=== PATIENT | male | born 1965 | race Caucasian/White ===

== ENCOUNTER 2017-10-19 07:57 | Day surgery (SDC) | payer OTHER ==
[2017-10-19] MEDS ORDERED: DEXAMETHASONE 10 MG/ML VIAL PF IJ ONE (07:58)
[2017-10-19] MEDS ORDERED: Lactated Ringers 1,000 ML IV ONE (07:58)
[2017-10-19] MEDS ORDERED: Xylocaine 1% Vial 30 ML PF IJ ONE (07:58)
[2017-10-19] MEDS ORDERED: DIPRIVAN 200 MG/20 ML IV ONE (07:58)
--- NOTE | 2017-10-19 11:37 | XRAY ---
Indication: Right L5 GILBERTO. Intraoperative fluoroscopy was provided for 1 minute 12 seconds. 3 digital spot images submitted for interpretation demonstrates posterior spinal needle tip projecting over the expected course of the right L5 nerve root. Tiny contrast injected for needle tip placement. Correlate with intraoperative findings/report.
--- NOTE | 2017-10-19 11:41 | XRAY ---
1 minute and 12 seconds fluoroscopy time in surgery for right side L5 GILBERTO.
--- NOTE | 2017-10-19 14:38 | OP ---
DATE OF PROCEDURE: 10/19/2017 0927 SURGEON: Michael Phoenix D.O. PREOPERATIVE DIAGNOSES: Degenerative lumbar spine disease, lumbar spondylosis. POSTOPERATIVE DIAGNOSES: Degenerative lumbar spine disease, lumbar spondylosis. PROCEDURE PERFORMED: Right L5 epidural steroid injection under fluoroscopic guidance. DESCRIPTION OF PROCEDURE: The patient was taken to the operating room and laid in the prone position on the table. Skin over the injection site was prepped and draped in sterile fashion. Under fluoroscope bony anatomy at the targeted injection site was visualized. Induction agent was given as per anesthesia while vital signs were monitored. Local anesthetic agent was introduced to anesthetize the skin in the subcutaneous tissue through injection site. Under fluoroscopic guidance a #22-gauge standard spinal needle was advanced into the target epidural space. 1 cc of preservative free Decadron was injected into each of the target epidural space. While the needle was being removed normal saline was simultaneously infiltrated to avoid sterile needle tract. Skin was cleansed with alcohol and then a bandage was applied. There was 30% pain reduction after the procedure. No complications or adverse consequences were observed. The patient was returned to the holding area until stabilized before discharge to home. The patient will be followed up within ten days after the injection for re-evaluation.
== END 2017-10-19 10:45 | disposition home or self-care (01) ==
LOC: SDC-PAIN 07:57
PROVIDERS: ATTEND Internal Medicine
DX: M54.5 Low back pain (principal); M51.16 Intervertebral disc disorders with radiculopathy, lumbar region; M46.96 Unspecified inflammatory spondylopathy, lumbar region; Z79.891 Long term (current) use of opiate analgesic
CPT/HCPCS: 62323; 72020; 77003; J2001; J2704; Q9967

== ENCOUNTER 2017-11-23 10:39 | Day surgery (SDC) | payer OTHER ==
[2017-11-23] MEDS ORDERED: DIPRIVAN 200 MG/20 ML IV ONE (10:40)
[2017-11-23] MEDS ORDERED: Xylocaine-Mpf 2% 5 Ml Vial IJ ONE (10:40)
[2017-11-23] MEDS ORDERED: Marcaine 0.5% SDV 10 ML IJ ONE (10:40)
[2017-11-23] MEDS ORDERED: Ketamine HCl 50 MG/ML IV ONE (10:40)
[2017-11-23] MEDS ORDERED: Lactated Ringers 1,000 ML IV ONE (10:40)
--- NOTE | 2017-11-23 12:03 | XRAY ---
Indication: Right L5 and S1 MBB. Intraoperative fluoroscopy was provided for 19 seconds. 2 digital spot images submitted for interpretation demonstrates posterior spinal needle tips projecting over the right L4 and L5 pedicles. Correlate with intraoperative findings/report.
--- NOTE | 2017-11-23 12:05 | XRAY ---
19 seconds fluoroscopy time in surgery for right L5-S1 MBB.
--- NOTE | 2017-11-24 10:15 | OP ---
DATE OF PROCEDURE: 11/23/2017 1130 SURGEON: Michael Phoeinx D.O. PREOPERATIVE DIAGNOSIS: Degenerative lumbar spine disease, spondylosis, low back pain. POSTOPERATIVE DIAGNOSIS: Degenerative lumbar spine disease, spondylosis, low back pain. PROCEDURE PERFORMED: Right L5-L4 medial branch block under fluoroscopic guidance. DESCRIPTION OF THE PROCEDURE: The patient was taken to the operating room and placed in the prone position on the table. Skin at the injection site was prepped and draped in sterile fashion. Under fluoroscopy, bony anatomy of the targeted injection site was visualized. Induction agent was given as per anesthesia while vital signs were monitored. Local anesthetic agent of 0.5 cc of 1% lidocaine preservative free was introduced to anesthetize the skin and the subcutaneous tissue through the injection site. Under fluoroscopic guidance, a #20 gauge standard spinal needle was advanced into the target medial branch through the oblique approach. The preservative free 0.5 cc of 1% lidocaine and 0.5 cc of 0.25% Marcaine were injected into each of the targeted medial branch nerve. After the needle was being removed, the skin was cleansed with alcohol and then a bandage was applied. No complications or adverse consequences were observed. The patient was returned to the holding area until stabilized before discharge to home. After the procedure the residual pain is 5 out of 10. There was no muscle weakness of the lower extremities after the procedure. The patient was ambulating well. The patient will be followed up within ten days after the injection for re-evaluation.
== END 2017-11-23 12:00 | disposition home or self-care (01) ==
LOC: SDC-PAIN 10:39
PROVIDERS: ATTEND Internal Medicine
DX: M54.16 Radiculopathy, lumbar region (principal); M46.96 Unspecified inflammatory spondylopathy, lumbar region; M51.36 Other intervertebral disc degeneration, lumbar region; Z79.891 Long term (current) use of opiate analgesic
CPT/HCPCS: 64493; 64494; 72020; 76000; J2704

== ENCOUNTER 2017-12-14 09:48 | Day surgery (SDC) | payer OTHER ==
[2017-12-14] MEDS ORDERED: Marcaine 0.5% SDV 10 ML IJ ONE (09:49)
[2017-12-14] MEDS ORDERED: LIDOCAINE HCL 2% 100 MG/5 ML IJ ONE (09:49)
[2017-12-14] MEDS ORDERED: Xylocaine-Mpf 2 ML IJ ONE (09:49)
[2017-12-14] MEDS ORDERED: DIPRIVAN 200 MG/20 ML IV ONE (09:49)
--- NOTE | 2017-12-14 12:25 | XRAY ---
Indication: L4-L5 and L5-S1 MBB. Intraoperative fluoroscopy was provided for 15 seconds. 4 digital spot images submitted for interpretation demonstrates 1 posterior spinal needle tip projecting over the right L5 pedicle and a 2nd needle tip projecting just right lateral to the lumbosacral junction. Correlate with intraoperative findings/report.
--- NOTE | 2017-12-14 12:53 | XRAY ---
15 seconds fluoroscopy time in surgery for L4-5 and L-5,S-1 MBB.
--- NOTE | 2017-12-15 09:36 | OP ---
DATE OF PROCEDURE: 12/14/2017 1132 SURGEON: Michael Phoenix D.O. PREOPERATIVE DIAGNOSIS: Degenerative lumbar spine disease, spondylosis, low back pain. POSTOPERATIVE DIAGNOSIS: Degenerative lumbar spine disease, spondylosis, low back pain. PROCEDURE PERFORMED: Right L5-L4 medial branch block under fluoroscopic guidance. DESCRIPTION OF THE PROCEDURE: The patient was taken to the operating room and placed in the prone position on the table. Skin at the injection site was prepped and draped in sterile fashion. Under fluoroscopy, bony anatomy of the targeted injection site was visualized. Induction agent was given as per anesthesia while vital signs were monitored. Local anesthetic agent of 0.5 cc of 1% lidocaine preservative free was introduced to anesthetize the skin and the subcutaneous tissue through the injection site. Under fluoroscopic guidance, a #20 gauge standard spinal needle was advanced into the target medial branch through the oblique approach. The preservative free 0.5 cc of 1% lidocaine and 0.5 cc of 0.25% Marcaine were injected into each of the targeted medial branch nerve. After the needle was being removed, the skin was cleansed with alcohol and then a bandage was applied. No complications or adverse consequences were observed. The patient was returned to the holding area until stabilized before discharge to home. Preoperative pain level was 8 out of 10 and the postoperative pain level is 5 out of 10. The patient will be followed up within ten days after the injection for re-evaluation.
== END 2017-12-14 12:05 | disposition home or self-care (01) ==
LOC: SDC-PAIN 09:48
PROVIDERS: ATTEND Internal Medicine
DX: M54.16 Radiculopathy, lumbar region (principal); M46.96 Unspecified inflammatory spondylopathy, lumbar region; M51.36 Other intervertebral disc degeneration, lumbar region; Z79.891 Long term (current) use of opiate analgesic; M47.816 Spondylosis without myelopathy or radiculopathy, lumbar region
CPT/HCPCS: 64493; 64494; 72020; 77003; J2704

== ENCOUNTER 2017-12-28 07:42 | Day surgery (SDC) | payer OTHER ==
[2017-12-28] MEDS ORDERED: Marcaine 0.5% SDV 10 ML IJ ONE (07:43)
[2017-12-28] MEDS ORDERED: DIPRIVAN 200 MG/20 ML IV ONE (07:43)
[2017-12-28] MEDS ORDERED: XYLOCAINE-MPF 1% 5ML SDV IJ ONE (07:43)
[2017-12-28] MEDS ORDERED: Lactated Ringers 1,000 ML IV ONE (09:13)
--- NOTE | 2017-12-28 11:00 | XRAY ---
Indication: Right L4-L5 and L5-S1 RFA. Intraoperative fluoroscopy was provided for 32 seconds. 3 digital spot images submitted for interpretation demonstrates 3 posterior spinal needle tips projecting over the right L3-L4, L4-L5, and L5-S1 facets. Correlate with intraoperative findings/report.
--- NOTE | 2017-12-28 12:28 | XRAY ---
32 seconds fluoroscopy time in surgery for right L4-L5, L5-S1 RFA.
--- NOTE | 2017-12-29 07:58 | OP ---
DATE OF PROCEDURE: 12/28/2017 0943 SURGEON: Michael Phoenix D.O. PREOPERATIVE DIAGNOSIS: Degenerative lumbosacral spine disease, spondylosis, low back pain. POSTOPERATIVE DIAGNOSIS: Degenerative lumbosacral spine disease, spondylosis, low back pain. PROCEDURES PERFORMED: Right L5, L4, L3 medial branch radiofrequency ablation under fluoroscopic guidance. DESCRIPTION OF PROCEDURE: The patient was taken to the operating room and laid in the prone position on the table. The skin over the injection site was prepped and draped in sterile fashion. Under fluoroscopy bony anatomy of the target injection site was visualized. Induction agent was given as per anesthesia while vital signs were monitored. Local anesthetic agent was introduced to anesthetize the skin and the subcutaneous tissue through the injection site. Under fluoroscopic guidance a standard size spinal needle with cannula was advanced into the target medial branch nerve as per standard protocol. Before the radiofrequency ablation motor and sensory nerve testing was conducted as per protocol. Under the safety guidance which ensured no motor nerves being involved, L5, L4, L3 radiofrequency ablation was conducted at 80 degrees Celsius for 90 seconds as per standard protocol. After the spinal needle with the cannula was removed the skin was cleansed with alcohol and then a bandage was applied. No complications or adverse occurrences were observed. The patient was returned to the holding area until stabilized before being discharged to home. The preoperative pain level was 8 out of 10 and postoperative pain level is 6 out of 10. The patient will be followed up within 10 days after the procedure for re-evaluation.
== END 2017-12-28 10:26 | disposition home or self-care (01) ==
LOC: SDC-PAIN 07:42
PROVIDERS: ATTEND Internal Medicine
DX: M54.16 Radiculopathy, lumbar region (principal); M46.96 Unspecified inflammatory spondylopathy, lumbar region; M47.816 Spondylosis without myelopathy or radiculopathy, lumbar region; Z79.891 Long term (current) use of opiate analgesic
CPT/HCPCS: 64635; 64636; 72020; 77003; J2704

== ENCOUNTER 2018-02-26 08:52 | Observation (INO) | payer OTHER ==
[2018-02-26] MEDS ORDERED: Sodium Chloride 0.9% 1000 ML 1,000 ML IV SCH (09:30)
[2018-02-26] MEDS ORDERED: Adacel Vial IM ONE ×2 (09:31→09:34)
[2018-02-26] MEDS ORDERED: Zosyn 3.375GM/100 Ml D5W 3.375 GM/100 ML IVPB IV STA (09:31)
[2018-02-26] MEDS ORDERED: Zosyn 3.375GM/100 Ml D5W 3.375 GM/100 ML IVPB IV ONE (09:34)
--- NOTE | 2018-02-26 09:37 | ERPHSYRPT ---
- History of Present Illness Time Seen by Provider: 02/26/18 09:10 Source: patient Exam Limitations: other Patient Subjective Stated Complaint: pt here for 2 black area to right inner aspect of heel, draining ,no injury and pt wears shoes all the time Triage Nursing Assessment: pt alert, resp easy. skin w/d/p. abd soft, Physician History: PATIENT WITH A HISTORY OF HYPERTENSION, CHRONIC LOW BACK PAIN, DEGENERATIVE DISC DISEASE COMPLAINS OF A RASH OVER HIS RIGHT HEAL AND A BLISTER. HAS PAIN UPON WEIGHT BEARING. DENIES TRAUMA, INJURY OR FEVER. Method of Injury: unknown Occurred: days ago Quality: constant, throbbing Severity of Pain-Max: moderate Severity of Pain-Current: moderate Lower Extremities Pain: heel: right Modifying Factors: Improves With: other (WORSE UPON WEIGHT BEARING ) Allergies/Adverse Reactions: No Known Drug Allergies Allergy (Verified 02/26/18 09:07) Home Medications: Gabapentin [Neurontin] 800 mg PO TID 07/12/17 [History] Meloxicam 15 mg [Meloxicam 15 MG] 15 mg PO DAILY 07/12/17 [History] Lisinopril 10 mg [Zestril 10 MG] 10 mg PO DAILY 10/26/17 [History] Simvastatin [Zocor] 10 mg PO DAILY 10/26/17 [History] Amitriptyline HCl [Elavil] 50 mg PO HS 10/31/17 [History] Omeprazole [Prilosec] 40 mg PO DAILY 10/31/17 [History] Oxycodone HCl/Acetaminophen [Percocet 10-325 mg Tablet] 0.5 each PO Q8H PRN PRN 10/31/17 [History] Celecoxib [Celebrex] 200 mg PO DAILY 01/09/18 [History] Hx Tetanus, Diphtheria Vaccination/Date Given: (unsure) Hx Influenza Vaccination/Date Given: No Hx Pneumococcal Vaccination/Date Given: No Immunizations Up to Date: Yes - Review of Systems Constitutional: No Fever, No Chills Eyes: No Symptoms Ears, Nose, & Throat: No Symptoms Respiratory: No Cough, No Dyspnea Cardiac: No Symptoms, No Chest Pain, No Edema, No Syncope Abdominal/Gastrointestinal: No Symptoms, No Abdominal Pain, No Nausea, No Vomiting, No Diarrhea Genitourinary Symptoms: No Dysuria Musculoskeletal: No Symptoms, No Back Pain, No Neck Pain Skin: No Symptoms, Rash Neurological: No Dizziness, No Focal Weakness, No Sensory Changes Psychological: No Symptoms Endocrine: No Symptoms All Other Systems: Reviewed and Negative - Past Medical History Neurological History: No Pertinent History Cardiac History: High Cholesterol, Hypertension Respiratory History: No Pertinent History Endocrine Medical History: No Pertinent History Musculoskeletal History: Arthritis, Degenerative Disk Disease - Past Surgical History Past Surgical History: Yes Gastrointestinal: Cholecystectomy - Social History Smoking Status: Current every day smoker Exposure to second hand smoke: Yes Drug Use: none Patient Lives Alone: No - Nursing Vital Signs Nursing Vital Signs: Initial Vital Signs Temperature 98.7 F 02/26/18 08:58 Pulse Rate 114 H 02/26/18 08:58 Respiratory Rate 16 02/26/18 08:58 Blood Pressure 104/86 02/26/18 08:58 O2 Sat by Pulse Oximetry 97 02/26/18 08:58 Pain Scale Pain Intensity 7 - Physical Exam General Appearance: alert Eyes, Ears, Nose, Throat Exam: moist mucous membranes Neck Exam: non-tender, supple Cardiovascular/Respiratory Exam: chest non-tender, normal breath sounds, regular rate/rhythm, no respiratory distress Gastrointestinal/Abdominal Exam: non-tender, guarding Back Exam: normal inspection, No vertebral tenderness Foot Exam: right foot: infection (there is an erythematous streak extending from medial aspect or right proximal calcaneous to proximal villar adjacent to knee over medial aspect of villar), soft tissue tenderness, swelling Neuro/Tendon Exam: normal sensation, normal motor functions Mental Status Exam: alert, oriented x 3, cooperative Skin Exam: normal color, warm, dry SpO2: 97 Oxygen Delivery: Room Air Ordered Tests: Active Orders 24 hr Category Date Time Status BLOOD CULTURE Stat Lab 02/26/18 09:40 Received BMP Stat Lab 02/26/18 09:43 Completed CBC W DIFF Stat Lab 02/26/18 09:43 Completed Lactic Acid Stat Lab 02/26/18 10:19 Results Manual Differential NC Stat Lab 02/26/18 09:43 Completed Transfer Order Routine Transfer 02/26/18 Ordered Medication Summary Generic Name Dose Route Start Last Admin Trade Name Freq PRN Reason Stop Dose Admin Sodium Chloride 1,000 mls @ 500 mls/hr 02/26/18 09:30 02/26/18 10:42 Sodium Chloride 0.9% 1000 Ml IV 03/28/18 09:29 Infused .Q2H SAUD Infusion Sodium Chloride 1,000 mls @ 999 mls/hr 02/26/18 10:30 02/26/18 10:50 Sodium Chloride 0.9% 1000 Ml IV 02/26/18 11:30 999 mls/hr .Q1H1M STA Administration Vancomycin HCl 1 gm in 250 mls @ 167 mls/hr 02/26/18 10:31 02/26/18 10:50 Vancomycin 1gm/ Ns 250ml IV 02/26/18 12:00 167 mls/hr STAT ONE Administration Discontinued Medications Generic Name Dose Route Start Last Admin Trade Name Freq PRN Reason Stop Dose Admin Diphtheria/Tetanus/Acell Pertussis 0.5 ml 02/26/18 09:31 02/26/18 09:37 Adacel Vial IM 02/26/18 09:32 0.5 ml .ONCE ONE Administration Diphtheria/Tetanus/Acell Pertussis Confirm 02/26/18 09:34 Adacel Vial Administered 02/26/18 09:35 Dose 0.5 ml IM .STK-MED ONE Piperacillin Sod/Tazobactam Sod 3.375 gm in 100 mls @ 200 mls/hr 02/26/18 09: 31 02/26/18 09:37 Zosyn 3.375gm/100 Ml D5w IV 02/26/18 10:00 200 mls/hr STAT STA 200 mls/hr Administration Piperacillin Sod/Tazobactam Sod Confirm 02/26/18 09:34 Zosyn 3.375gm/100 Ml D5w Administered 02/26/18 09:35 Dose 3.375 gm in 100 mls @ ud IV .STK-MED ONE Vancomycin HCl Confirm 02/26/18 10:44 Vancomycin 1gm/ Ns 250ml Administered 02/26/18 10:45 Dose 250 mls @ ud IV .STK-MED ONE Lab/Rad Data: Laboratory Result Diagrams 02/26/18 09:43 02/26/18 09:43 Laboratory Results 02/26/18 02/26/18 02/26/18 Range/Units 10:19 09:43 09:43 WBC 27.4 H* (4.0-10.5) K/mm3 RBC 5.06 (4.1-5.6) M/mm3 Hgb 16.6 (12.5-18.0) gm/dl Hct 46.6 (42-50) % MCV 92.1 (78-100) fl MCH 32.8 H (26-32) pg MCHC 35.6 (32-36) g/dl RDW 13.1 (11.5-14.0) % Plt Count 177 (150-450) K/mm3 MPV 10.6 H (6-9.5) fl Absolute Granulocytes 25.35 H (1.4-6.9) Segmented Neutrophils 94 H (36.-66.) % Band Neutrophils 4 H (0.0-2.0) % Lymphocytes (Manual) 2 L (24-44) % Platelet Estimate NORMAL (NORMAL) RBC Morphology NORMAL Sodium 138 (137-145) mmol/L Potassium 4.0 (3.5-5.1) mmol/L Chloride 103 (98-107) mmol/L Carbon Dioxide 24 (22-30) mmol/L Anion Gap 14.9 (5-15) MEQ/L BUN 20 (9-20) mg/dL Creatinine 0.81 (0.66-1.25) mg/dL Estimated GFR > 60.0 ML/MIN Glucose 137 H (74-106) mg/dL Lactic Acid 2.0 (0.4-2.0) Calcium 9.9 (8.4-10.2) mg/dL - Progress Progress Note: 02/26/18 09:39 IV NORMAL SALINE 500ML/HR, AFTER 2 SETS OF BLOOD CULTURES ADMINISTERED ZOSYN 3.375GM IVPB FOLLOWED BY VANCOMYCIN 1GM IVPB 02/26/18 10:56 Discussed with .: Baudilio Will see patient in: hospital (observation) (DISCUSSED WITH DR CARDOZO AT 1033 FOR OBSERVATION) - Departure Time of Disposition: 10:58 Departure Disposition: Observation Clinical Impression: CELLULITIS LEFT LOWER EXTREMITY, SEPTICEMIA Condition: Stable Critical Care Time: No Referrals: KEYUR INIGUEZ [Primary Care Provider] -
[2018-02-26 09:51] LABS: Granulocyte Absolute (ANC) 25.35 (1.4-6.9); Hematocrit 46.6 % (42-50); Hemoglobin 16.6 gm/dl (12.5-18.0); Mean Cell Volume 92.1 fl (78-100); Mean Corpuscular Hemoglobin 32.8 pg (26-32); Mean Corpuscular Hgb Concent. 35.6 g/dl (32-36); Mean Platelet Volume 10.6 fl (6-9.5); Platelet Count 177 K/mm3 (150-450); Red Blood Count 5.06 M/mm3 (4.1-5.6); Red Cell Distribution Width 13.1 % (11.5-14.0)
[2018-02-26 10:03] LABS: White Blood Count 27.4 K/mm3 (4.0-10.5)
[2018-02-26 10:06] LABS: ANION GAP 14.9 MEQ/L (5-15); BLOOD UREA NITROGEN 20 mg/dL (9-20); CHLORIDE 103 mmol/L (98-107); Calcium 9.9 mg/dL (8.4-10.2); Carbon Dioxide 24 mmol/L (22-30); Creatinine 1 0.81 mg/dL (0.66-1.25); Glucose 137 mg/dL (74-106); SODIUM 138 mmol/L (137-145)
[2018-02-26 10:21] LABS: BAND 4 % (0.0-2.0); Lymphocytes 2 % (24-44); Neutrophils 94 % (36.-66.); Total Cells Counted 100
[2018-02-26 10:22] LABS: Platelet Estimate NORMAL (NORMAL)
[2018-02-26] MEDS ORDERED: Sodium Chloride 0.9% 1000 ML 1,000 ML IV STA (10:30)
[2018-02-26] MEDS ORDERED: Vancomycin 1GM/ Ns 250ML*** 1 GM/250 ML IVPB IV ONE (10:31)
[2018-02-26] MEDS ORDERED: Vancomycin 1GM/ Ns 250ML*** 250 ML IV ONE (10:44)
[2018-02-26] MEDS ORDERED: TYLENOL 325 MG PO PRN (11:26)
[2018-02-26] MEDS ORDERED: Protonix 40MG Tablet PO ONE (11:26)
[2018-02-26] MEDS ORDERED: PERCOCET TABLET 5/325MG PO PRN (11:26)
[2018-02-26] MEDS ORDERED: Zofran 4 MG/2 ML VIAL IV PRN (11:26)
[2018-02-26] MEDS ORDERED: Nicoderm CQ 21 MG TOP PRN (12:45)
[2018-02-26] MEDS: Zosyn 3.375GM/100 Ml D5W 3.375 GM/100 ML IVPB IV SCH ×2 (13:50→17:58)
[2018-02-26] MEDS: Protonix 40MG Tablet PO SCH (13:50)
[2018-02-26] MEDS ORDERED: METHOCARBAMOL 750 MG PO SCH (15:00)
[2018-02-26] MEDS: Neurontin 400 MG PO SCH ×2 (15:20→20:35)
[2018-02-26] MEDS: Robaxin 500 MG PO SCH ×2 (15:20→20:36)
[2018-02-26] MEDS: Sodium Chloride 0.9% 1000 ML 1,000 ML IV SCH (20:37)
[2018-02-26] MEDS: VANCOCIN 1 GM VIAL*** 1 GM in Sodium Chloride 0.9% 250 ML 250 ML IV SCH (20:45)
[2018-02-27] MEDS: Zosyn 3.375GM/100 Ml D5W 3.375 GM/100 ML IVPB IV SCH ×5 (00:07→23:38)
[2018-02-27] MEDS: OXYCODONE-ACETAMINOPHEN 10-325 PO PRN (04:44)
[2018-02-27] MEDS: Sodium Chloride 0.9% 1000 ML 1,000 ML IV SCH (07:45)
--- NOTE | 2018-02-27 08:16 | PCM.HP ---
History of Present Illness - Chief Complaint Chief Complaint: CELLULITIS RIGHT LOWER EXTREMITY Date: 02/27/18 History of Present Illness: is a 52 year old male. who was at home when he noticed a couple red spots that got dark on his right inner lower leg/ankle area a few days prior to admission and suddenly worsened becoming hot and painful and began to blister with spreading redness proximally. He initial refused to go to doctor when his suggested it but then slept all day the day of admission and when she went to wake him up in the evening he was groggy and weak and she made him come in. It is doing much better today he states and the areas are shrinking and less painful and he feels well today. He has no previous skin infection. - Review of Systems Constitutional: Chills, Fatigue, No Fever Eyes: No Symptoms Ears, Nose, & Throat: No Symptoms Respiratory: No Cough, No Short Of Breath Cardiac: No Chest Pain, No Edema, No Syncope Abdominal/Gastrointestinal: No Abdominal Pain, No Nausea, No Vomiting, No Diarrhea Genitourinary Symptoms: No Dysuria Musculoskeletal: No Back Pain, No Neck Pain Skin: No Rash Neurological: No Dizziness, No Focal Weakness, No Sensory Changes Psychological: No Symptoms Endocrine: No Symptoms Hematologic/Lymphatic: No Symptoms Immunological/Allergic: No Symptoms Medications & Allergies Home Medications: Home Medication List Gabapentin [Neurontin] 800 mg PO TID 07/12/17 [History Confirmed 02/26/18] Simvastatin [Zocor] 10 mg PO DAILY 10/26/17 [History Confirmed 02/26/18] Amitriptyline HCl [Elavil] 50 mg PO HS 10/31/17 [History Confirmed 02/26/18] Omeprazole [Prilosec] 40 mg PO DAILY 10/31/17 [History Confirmed 02/26/18] Oxycodone HCl/Acetaminophen [Percocet 10-325 mg Tablet] 1 each PO Q8H PRN PRN [History Confirmed 02/26/18] Celecoxib [Celebrex] 200 mg PO DAILY 01/09/18 [History Confirmed 02/26/18] Losartan Potassium 50 mg PO DAILY 02/26/18 [History Confirmed 02/26/18] Methocarbamol 750 mg PO TID 02/26/18 [History Confirmed 02/26/18] Smz/Tmp Ds Tablet [Bactrim Ds Tablet] 1 tab PO Q12H #20 tablet 02/28/18 [ Rx] Allergies/Adverse Reactions: Allergies Allergy/AdvReac Type Severity Reaction Status Date / Time No Known Drug Allergies Allergy Verified 02/26/18 09:07 - Past Medical History Past Medical History: Yes Neurological History: No Pertinent History ENT History: No Pertinent History Cardiac History: High Cholesterol, Hypertension Respiratory History: No Pertinent History Endocrine Medical History: No Pertinent History Musculoskelatal History: Arthritis, Degenerative Disk Disease GI Medical History: No Pertinent History History: No Pertinent History Pyscho-Social History: No Pertinent History Male Reproductive Disorders: No Pertinent History - Past Surgical History Past Surgical History: Yes Neuro Surgical History: No Pertinent History Cardiac History: No Pertinent History Respiratory Surgery: No Pertinent History GI Surgical History: Cholecystectomy Genitourinary Surgical Hx: No Pertinent History Musculskeletal Surgical Hx: No Pertinent History Male Surgical History: No Pertinent History - Social History Smoking Status: Current every day smoker How long have you smoked: 40 YEARS Exposure to second hand smoke: Yes Alcohol: None Drug Use: none - Physical Exam Vital Signs: Vital Signs - 24 hr Temp Pulse Resp BP Pulse Ox 02/27/18 07:29 98.1 F 97 H 16 112/72 94 L 02/27/18 04:10 99.4 F 104 H 22 135/80 96 02/26/18 23:28 99.2 F 107 H 16 117/72 96 02/26/18 19:46 99.4 F 111 H 16 111/70 95 02/26/18 15:56 97.8 F 99 H 20 108/65 96 02/26/18 11:29 98.0 F 100 H 20 116/73 98 02/26/18 11:19 98 F 100 H 20 116/73 98 02/26/18 11:06 97 02/26/18 10:50 103 H 20 121/82 98 02/26/18 10:38 101 H 16 120/79 99 02/26/18 08:58 98.7 F 114 H 16 104/86 97 General Appearance: no apparent distress, alert Neurologic Exam: alert, oriented x 3, cooperative, normal mood/affect, nml cerebellar function, nml station & gait, sensation nml, No motor deficits Eye Exam: PERRL/EOMI, eyes nml inspection Ears, Nose, Throat Exam: normal ENT inspection, TMs normal, pharynx normal, moist mucous membranes Neck Exam: normal inspection, non-tender, supple, full range of motion Respiratory Exam: normal breath sounds, lungs clear, No respiratory distress Cardiovascular Exam: regular rate/rhythm, normal heart sounds, normal peripheral pulses Gastrointestinal/Abdomen Exam: soft, normal bowel sounds, No tenderness, No mass Back Exam: normal inspection, normal range of motion, No CVA tenderness, No vertebral tenderness Extremity Exam: normal inspection, normal range of motion, pelvis stable Skin Exam: normal color, warm, dry, other (right medial lower ankle with red warm court with central blistering with yellow drainage no induration no ankle joint swelling or redness and full range of motion no ischemic lesions to the foot) Lymphatic Exam: No adenopathy Results - Labs Lab/Micro Results: Lab Results-Last 24 Hours 02/26/18 02/26/18 02/26/18 Range/Units 09:43 09:43 10:19 WBC 27.4 H* (4.0-10.5) K/mm3 RBC 5.06 (4.1-5.6) M/mm3 Hgb 16.6 (12.5-18.0) gm/dl Hct 46.6 (42-50) % MCV 92.1 (78-100) fl MCH 32.8 H (26-32) pg MCHC 35.6 (32-36) g/dl RDW 13.1 (11.5-14.0) % Plt Count 177 (150-450) K/mm3 MPV 10.6 H (6-9.5) fl Absolute Granulocytes 25.35 H (1.4-6.9) Segmented Neutrophils 94 H (36.-66.) % Band Neutrophils 4 H (0.0-2.0) % Lymphocytes (Manual) 2 L (24-44) % Platelet Estimate NORMAL (NORMAL) RBC Morphology NORMAL Sodium 138 (137-145) mmol/L Potassium 4.0 (3.5-5.1) mmol/L Chloride 103 (98-107) mmol/L Carbon Dioxide 24 (22-30) mmol/L Anion Gap 14.9 (5-15) MEQ/L BUN 20 (9-20) mg/dL Creatinine 0.81 (0.66-1.25) mg/dL Estimated GFR > 60.0 ML/MIN Glucose 137 H (74-106) mg/dL Lactic Acid 2.0 (0.4-2.0) Calcium 9.9 (8.4-10.2) mg/dL 02/26/18 Range/Units 12:35 WBC (4.0-10.5) K/mm3 RBC (4.1-5.6) M/mm3 Hgb (12.5-18.0) gm/dl Hct (42-50) % MCV (78-100) fl MCH (26-32) pg MCHC (32-36) g/dl RDW (11.5-14.0) % Plt Count (150-450) K/mm3 MPV (6-9.5) fl Absolute Granulocytes (1.4-6.9) Segmented Neutrophils (36.-66.) % Band Neutrophils (0.0-2.0) % Lymphocytes (Manual) (24-44) % Platelet Estimate (NORMAL) RBC Morphology Sodium (137-145) mmol/L Potassium (3.5-5.1) mmol/L Chloride (98-107) mmol/L Carbon Dioxide (22-30) mmol/L Anion Gap (5-15) MEQ/L BUN (9-20) mg/dL Creatinine (0.66-1.25) mg/dL Estimated GFR ML/MIN Glucose (74-106) mg/dL Lactic Acid 1.6 (0.4-2.0) Calcium (8.4-10.2) mg/dL Assessment/Plan (1) Sepsis Status: Acute Assessment & Plan: due to cellulitis wound and blood cultures pending symptoms improving continue fluids and zosyn + vanc pending cultures (2) Cellulitis of right lower extremity Status: Acute Onset Date: ~02/27/18 Code(s): L03.115 - CELLULITIS OF RIGHT LOWER LIMB (3) Hypertension Status: Chronic Code(s): I10 - ESSENTIAL (PRIMARY) HYPERTENSION (4) Tobacco abuse Status: Chronic Code(s): Z72.0 - TOBACCO USE
[2018-02-27 08:35] LABS: BASOPHIL % 0.2 % (0.0-0.4); Basophil (Absolute #) 0.03 (0-0.4); Eosinophil % 2.4 % (0.00-5.0); Eosinophil (Absolute #) 0.39 (0-0.5); Granulocyte Absolute (ANC) 14.09 (1.4-6.9); Granulocytes % 86.7 % (36.0-66.0); Hematocrit 40.2 % (42-50); Hemoglobin 14.1 gm/dl (12.5-18.0); Lymphocyte (Absolute #) 0.85 (1.0-4.6); Lymphocytes % 5.2 % (24.0-44.0); Mean Cell Volume 93.3 fl (78-100); Mean Corpuscular Hemoglobin 32.7 pg (26-32); Mean Corpuscular Hgb Concent. 35.1 g/dl (32-36); Mean Platelet Volume 10.2 fl (6-9.5); Monocytes % 5.5 % (0.0-12.0); Platelet Count 184 K/mm3 (150-450); Red Blood Count 4.31 M/mm3 (4.1-5.6); White Blood Count 16.3 K/mm3 (4.0-10.5)
[2018-02-27 09:00] LABS: ANION GAP 12.1 MEQ/L (5-15); BLOOD UREA NITROGEN 13 mg/dL (9-20); CHLORIDE 108 mmol/L (98-107); Calcium 9.2 mg/dL (8.4-10.2); Carbon Dioxide 25 mmol/L (22-30); Creatinine 1 0.78 mg/dL (0.66-1.25); Glucose 120 mg/dL (74-106); Potassium 4.3 mmol/L (3.5-5.1); SODIUM 142 mmol/L (137-145)
[2018-02-27] MEDS: VANCOCIN 1 GM VIAL*** 1 GM in Sodium Chloride 0.9% 250 ML 250 ML IV SCH ×2 (09:43→21:15)
[2018-02-27] MEDS: Neurontin 400 MG PO SCH ×3 (09:44→21:14)
[2018-02-27] MEDS: Robaxin 500 MG PO SCH ×3 (09:45→21:15)
[2018-02-27] MEDS: Protonix 40MG Tablet PO SCH (09:45)
[2018-02-27] MEDS ORDERED: NON-FORMULARY ITEM (Omeprazole [Prilosec] 40 MG) PO SCH (10:00)
[2018-02-27] MEDS ORDERED: ENOXAPARIN SODIUM SQ SCH (10:00)
[2018-02-27] MEDS ORDERED: NON-FORMULARY ITEM (Celecoxib [Celebrex] 200 MG) PO SCH (10:00)
[2018-02-27] MEDS ORDERED: Zocor 10MG PO SCH (10:00)
[2018-02-27] MEDS ORDERED: Zestril 10 MG PO SCH (10:00)
[2018-02-27] MEDS ORDERED: celeBREX 100 MG PO SCH (10:00)
[2018-02-27] MEDS ORDERED: Cozaar 50 MG PO SCH (10:00)
[2018-02-28] MEDS: Zosyn 3.375GM/100 Ml D5W 3.375 GM/100 ML IVPB IV SCH (05:28)
[2018-02-28] MEDS: Sodium Chloride 0.9% 1000 ML 1,000 ML IV SCH (05:29)
[2018-02-28] MEDS: OXYCODONE-ACETAMINOPHEN 10-325 PO PRN (05:42)
[2018-02-28 06:18] LABS: BASOPHIL % 0.2 % (0.0-0.4); Basophil (Absolute #) 0.02 (0-0.4); Eosinophil % 4.6 % (0.00-5.0); Eosinophil (Absolute #) 0.42 (0-0.5); Granulocyte Absolute (ANC) 6.67 (1.4-6.9); Granulocytes % 72.8 % (36.0-66.0); Hematocrit 34.9 % (42-50); Lymphocyte (Absolute #) 1.25 (1.0-4.6); Lymphocytes % 13.6 % (24.0-44.0); Mean Cell Volume 93.3 fl (78-100); Mean Corpuscular Hgb Concent. 34.4 g/dl (32-36); Mean Platelet Volume 10.5 fl (6-9.5); Monocyte (Absolute #) 0.81 (0.0-1.3); Monocytes % 8.8 % (0.0-12.0); Platelet Count 206 K/mm3 (150-450); Red Blood Count 3.74 M/mm3 (4.1-5.6); Red Cell Distribution Width 13.2 % (11.5-14.0); White Blood Count 9.2 K/mm3 (4.0-10.5)
[2018-02-28 06:33] LABS: ANION GAP 8.6 MEQ/L (5-15); BLOOD UREA NITROGEN 9 mg/dL (9-20); CHLORIDE 111 mmol/L (98-107); Calcium 8.6 mg/dL (8.4-10.2); Carbon Dioxide 25 mmol/L (22-30); Creatinine 1 0.74 mg/dL (0.66-1.25); Glucose 135 mg/dL (74-106); Potassium 3.3 mmol/L (3.5-5.1); SODIUM 141 mmol/L (137-145)
--- NOTE | 2018-02-28 06:48 | PCM.DS ---
Discharge Summary Date of Admission: 02/26/18 11:13 Date of Discharge: 02/28/18 Admitting Physician: GERALDINE CARDOZO Primary Care Provider: KEYUR INIGUEZ Allergies Allergies No Known Drug Allergies Allergy (Verified 02/26/18 09:07) Hospital Summary - Hospital Course Hospital Course: He presented with cellulitis with abscess spontaneously draining of the right lower leg resulting in clinical sepsis. She responded well to fluids and vancomycin with zosyn and wound culture returned MRSA sensitive to bactrim. He was feeling much better the leg wound was improving and he was discharged to home with outpatient f/u to complete coarse of the bactrim. - Vitals & Intake/Output Vital Signs: Vital Signs Temperature 97.9 F 02/28/18 04:00 Pulse Rate 69 02/28/18 04:00 Respiratory Rate 16 02/28/18 04:00 Blood Pressure 122/76 02/28/18 04:00 O2 Sat by Pulse Oximetry 96 02/28/18 04:00 Intake & Output: Intake & Output 02/25/18 02/26/18 02/27/18 02/28/18 11:59 11:59 11:59 11:59 Intake Total 3747 2377 Output Total 1150 Balance 2597 2377 Weight 72.5 kg - Lab Result Diagrams: 02/28/18 05:50 02/28/18 05:50 Lab Results-Last 24 Hrs: Lab Results-Last 24 Hours 02/27/18 02/27/18 02/28/18 Range/Units 08:30 08:30 05:50 WBC 16.3 H 9.2 (4.0-10.5) K/mm3 RBC 4.31 3.74 L (4.1-5.6) M/mm3 Hgb 14.1 12.0 L (12.5-18.0) gm/dl Hct 40.2 L 34.9 L (42-50) % MCV 93.3 93.3 (78-100) fl MCH 32.7 H 32.0 (26-32) pg MCHC 35.1 34.4 (32-36) g/dl RDW 13.0 13.2 (11.5-14.0) % Plt Count 184 206 (150-450) K/mm3 MPV 10.2 H 10.5 H (6-9.5) fl Gran % 86.7 H 72.8 H (36.0-66.0) % Eos # (Auto) 0.39 0.42 (0-0.5) Absolute Lymphs (auto) 0.85 L 1.25 (1.0-4.6) Absolute Monos (auto) 0.90 0.81 (0.0-1.3) Lymphocytes % 5.2 L 13.6 L (24.0-44.0) % Monocytes % 5.5 8.8 (0.0-12.0) % Eosinophils % 2.4 4.6 (0.00-5.0) % Basophils % 0.2 0.2 (0.0-0.4) % Absolute Granulocytes 14.09 H 6.67 (1.4-6.9) Basophils # 0.03 0.02 (0-0.4) Sodium 142 (137-145) mmol/L Potassium 4.3 (3.5-5.1) mmol/L Chloride 108 H (98-107) mmol/L Carbon Dioxide 25 (22-30) mmol/L Anion Gap 12.1 (5-15) MEQ/L BUN 13 (9-20) mg/dL Creatinine 0.78 (0.66-1.25) mg/dL Estimated GFR > 60.0 ML/MIN Glucose 120 H (74-106) mg/dL Calcium 9.2 (8.4-10.2) mg/dL Micro Results-Entire Visit: Microbiology 02/26/18 09:40 Blood Culture - Preliminary Blood NO GROWTH TO DATE 02/26/18 09:43 Blood Culture - Preliminary Blood NO GROWTH TO DATE 02/26/18 13:00 Wound Culture - Final Heel - Right Methicillin Resist Staph Aur - Procedures and Test Procedures and Tests throughout Hospitalization: Therapy Orders & Screens 02/26/18 11:55 OT Screen per Nursing Assess Comment: Protocol Order Physician Instructions: Greater than 3 points order OT Admission Screening Reason For Exam: Triggered on Admission Diagnosis: CELLULITIS RIGHT LOWER EXTREMITY Open Wound/Cellutlitis/Pressure Ulcers: Yes Acute Fx/ORIF/Change in wt bearing status: No Severe MUSCULOSKELETAL pain: No ADL Dysfunction: No Acute CVA w/Hemiparesis/Hemiplegia: No Decreased Functional Mobility/Strength: No Sprain/Strain: No Acute Post-op Mobility Dysfunction: No Total Points: 5 PT Screen per Nursing Assess Comment: Protocol Order Physician Instructions: Greater than 3 points order PT Admission Screenin Reason For Exam: Triggered on Admission Diagnosis: CELLULITIS RIGHT LOWER EXTREMITY Open Wound/Cellutlitis/Pressure Ulcers: Yes Acute Fx/ORIF/Change in wt bearing status: No Severe MUSCULOSKELETAL pain: No ADL Dysfunction: No Acute CVA w/Hemiparesis/Hemiplegia: No Decreased Functional Mobility/Strength: No Sprain/Strain: No Acute Post-op Mobility Dysfunction: No Total Points: 5 Smoking Cessation Education ONCE Comment: Diagnosis: CELLULITIS RIGHT LOWER EXTREMITY Smoking Status: Current every day smoker How long have you smoked: 40 YEARS Have you smoked in the past 12 months: Yes Do you dip or chew tobacco: No Discharge Exam General Appearance: no apparent distress, alert Neurologic Exam: alert, oriented x 3, cooperative, normal mood/affect, nml cerebellar function, sensation nml, No motor deficits Skin Exam: normal color, warm, dry, other (right medial ankle are of skin 2 blistered areas with redness aroun improving no warmth or drainage today still full range of motion of ankle with no pain or swelling.) Eye Exam: PERRL, EOMI, eyes nml inspection Ears, Nose, Throat Exam: normal ENT inspection, pharynx normal, moist mucous membranes Neck Exam: normal inspection, non-tender, supple, full range of motion Respiratory Exam: normal breath sounds, lungs clear, No respiratory distress Cardiovascular Exam: regular rate/rhythm, normal heart sounds Gastrointestinal/Abdomen Exam: soft, No tenderness, No mass Extremity Exam: normal inspection, normal range of motion Back Exam: normal inspection, normal range of motion, No CVA tenderness, No vertebral tenderness Male Genitalia Exam: deferred Rectal Exam: deferred Final Diagnosis/Problem List - Final Discharge Diagnosis/Problem (1) MRSA cellulitis Status: Acute (2) Septicemia Status: Resolved Onset Date: ~02/27/18 (3) Hypertension Status: Chronic (4) Tobacco abuse Status: Chronic - Discharge Disposition: Home, Self-Care Condition: Stable Prescriptions: New Smz/Tmp Ds Tablet [Bactrim Ds Tablet] 1 tab PO Q12H #20 tablet Continue Gabapentin [Neurontin] 800 mg PO TID Simvastatin [Zocor] 10 mg PO DAILY Oxycodone HCl/Acetaminophen [Percocet 10-325 mg Tablet] 1 each PO Q8H PRN PRN PRN Reason: Moderate Pain Omeprazole [Prilosec] 40 mg PO DAILY Amitriptyline HCl [Elavil] 50 mg PO HS Celecoxib [Celebrex] 200 mg PO DAILY Methocarbamol 750 mg PO TID Losartan Potassium 50 mg PO DAILY Discontinued Lisinopril 10 mg [Zestril 10 MG] 10 mg PO DAILY Instructions: MRSA (DC), Cellulitis (Skin Infection), Adult (DC) Follow up with: KEYUR INIGUEZ [Primary Care Provider] - 03/07/18 10:15 am Forms: Discharge Instructions
[2018-02-28 07:15] VITALS: BP 120/72; PULSE 73; O2SAT 98
[2018-02-28] MEDS ORDERED: TROUGH DRUG LEVELS IJ ONE (09:30)
== END 2018-02-28 08:20 | disposition home or self-care (01) ==
LOC: ED 08:52 → MED SURG 11:13
PROVIDERS: ADMIT Family Medicine; ATTEND Family Medicine
DX: L03.115 Cellulitis of right lower limb (principal); B95.62 Methicillin resistant Staphylococcus aureus infection as the cause of diseases classified elsewhere; A41.9 Sepsis, unspecified organism; I10 Essential (primary) hypertension; E78.00 Pure hypercholesterolemia, unspecified; M19.90 Unspecified osteoarthritis, unspecified site; Z72.0 Tobacco use; Z79.899 Other long term (current) drug therapy
CPT/HCPCS: 36000; 36415; 80048; 83605; 85025; 87040; 87070; 87077; 87186; 96360; 96365; 99285; G0378; 90471; 90715; J1650; J2543; J3370; A9270-GY

== ENCOUNTER 2019-03-28 11:22 | Day surgery (SDC) | payer OTHER ==
[2019-03-28] MEDS ORDERED: Depo-Medrol 40 MG/ML IM ONE (11:23)
[2019-03-28] MEDS ORDERED: LIDOCAINE HCL 2% 100 MG/5 ML IJ ONE (11:23)
[2019-03-28] MEDS ORDERED: Ketamine HCl 50 MG/ML ONE (12:22)
[2019-03-28] MEDS ORDERED: DIPRIVAN 200 MG/20 ML IV ONE ×2 (12:22→12:38)
--- NOTE | 2019-03-28 14:13 | XRAY ---
Indication: Bilateral T9-T12 MBB. Intraoperative fluoroscopy was provided for 13 seconds. 2 digital spot images submitted for interpretation demonstrates posterior needle tips projecting over the expected course of the left and right T9-T12 nerve roots. Correlate with intraoperative findings/report.
--- NOTE | 2019-03-28 14:18 | XRAY ---
13 seconds fluoroscopy time in surgery for bilateral T9-T12 MBB.
[2019-03-28] MEDS ORDERED: Lactated Ringers 1,000 ML IV ONE (15:55)
== END 2019-03-28 13:00 | disposition home or self-care (01) ==
LOC: SDC-PAIN 11:22
PROVIDERS: ATTEND Psychiatry & Neurology Pain Medicine
DX: M47.816 Spondylosis without myelopathy or radiculopathy, lumbar region (principal); I10 Essential (primary) hypertension; K21.9 Gastro-esophageal reflux disease without esophagitis; Z79.899 Other long term (current) drug therapy
CPT/HCPCS: 72020; 77002; J1030; J2704

== ENCOUNTER 2019-11-05 08:36 | Day surgery (SDC) | payer OTHER ==
--- NOTE | 2019-11-05 07:47 | HP ---
DATE OF SURGERY: 11/05/2019 HISTORY OF PRESENT ILLNESS: The patient is a 54 year-old had some weight loss, had some dizziness and not feeling well. He had CT of the abdomen that showed some thickening of the cecum. He never had prior colonoscopy. He is need of screening colonoscopy. PAST MEDICAL HISTORY: He had some very small thyroid nodules. He had a FNA that showed colloid benign nodule. No evidence of malignancy. He had some hyperlipidemia, hypertension, osteoarthritis, degenerative joint disease, shoulder and chronic back pain. PAST SURGICAL HISTORY: Gallbladder out ten years ago. MEDICATIONS: Methadone, losartan, Lexapro, atorvastatin. ALLERGIES: NKDA. FAMILY HISTORY: Myocardial infarction. Negative for colon cancer. He said there is some lung cancer in the family. SOCIAL HISTORY: Pack per day smoking in the past. Denies alcohol abuse. REVIEW OF SYSTEMS: Fourteen systems reviewed. No chest pain or palpitations. He has had some depression. Other systems negative or noncontributory as above and per preadmission questionnaire. PHYSICAL EXAMINATION: GENERAL: No acute distress. HEENT: Sclerae nonicteric. NECK: No JVD. CHEST: Equal excursion, nonlabored breathing. CVS: Regular rate and rhythm. ABDOMEN: Soft. No peritoneal signs. EXTREMITIES: No significant edema. NEURO: Alert, oriented, moving extremities symmetrically. No gross motor deficits noted. RECTAL: Deferred timed to endoscopy exam. IMPRESSION: No prior colonoscopy. I feel he will benefit from screening colonoscopy. He had a little bit of cecal wall thickening versus incomplete distention, nonspecific findings. Either way as he has not had a prior colonoscopy he is in need of screening colonoscopy for further evaluation. He was shown the risk sheet and explained the procedure in detail but not limited to bleeding or infection, risk of bowel injury or perforation possibly requiring open procedure, risk of missed or nondiagnosis or incomplete exam possibly requiring barium enema, other studies or procedures, general risk of anesthesia or sedation, risk of bowel prep but not limited to. He understands and agrees to the planned procedure, will proceed with outpatient screening colonoscopy under MAC anesthesia.
[2019-11-05] MEDS: Lactated Ringers 1,000 ML IV SCH (09:19)
[2019-11-05] MEDS ORDERED: DIPRIVAN 200 MG/20 ML IV ONE ×2 (13:10→13:22)
[2019-11-05] MEDS ORDERED: Lactated Ringers 1,000 ML IV ONE (13:17)
[2019-11-05 14:33] VITALS: O2SAT 94
[2019-11-05 14:40] VITALS: BP 152/82; PULSE 75
--- NOTE | 2019-11-05 15:42 | OP ---
SURGERY DATE/TIME: 11/05/2019 1311 PREOPERATIVE DIAGNOSIS: History of weight loss, history of thickening right colon on CT scan. No prior colonoscopy. Need for screening colonoscopy. POSTOPERATIVE DIAGNOSES: 1) Colon polyp. 2) Diverticulosis. 3) Small internal and external hemorrhoids. 4) Limited bowel prep. PROCEDURES: 1) Colonoscopy to cecum. 2) Hot biopsy small raised lesion cecum. 3) Hot biopsy small early polyps ascending colon x3, sigmoid colon x3 as well as rectal polyp x1. 4) Hot snare polypectomy transverse colon polyp. 5) Random cold biopsies cecum and right colon, evaluate for microscopic colitis. SURGEON: Dr. Selvin Garcia. ANESTHESIA: MAC. ESTIMATED BLOOD LOSS: Minimal. INDICATIONS: As noted above. Risks and benefits explained in detail but not limited to and consent obtained. DESCRIPTION OF PROCEDURE AND FINDINGS: The patient is taken to the operating room. MAC anesthesia induced. After official time out and no disagreement with planned procedure, digital rectal exam did not reveal any rectal masses. He did have some small internal and external hemorrhoids. Video colonoscope inserted and passed up through the limited bowel prep through the tortuous colon. Positioning on his back the scope was able to be passed around to the cecum. Appendiceal orifice and ileocecal valve well visualized. Small, little raised area of early polyp in the cecum ascending colon was removed with hot biopsy forceps. Random cold biopsies were taken of the cecum and proximal ascending colon to evaluate for microscopic colitis. There was no gross macroscopic colitis. There were no large masses. There were two or three little, small polyps in the ascending colon removed with hot biopsy forceps with brief bursts of cautery. The scope was then withdrawn over the next 15 minutes. Again, very limited prep. A large amount of liquidy semisolid and few solid stool chunks were suction irrigated as clear as possible but did limit the exam for very small lesions. I felt there was no large polyps, masses or obstructing lesions but the prep did limit the exam for small polyps. The scope was slowly and carefully withdrawn. In transverse colon there was a little bit larger centimeter size polyp removed with hot snare polypectomy with brief bursts of cautery elevating well away from the bowel wall. Otherwise the scope is slowly and carefully pulled back to the sigmoid colon about 25 cm. Small polyp removed with hot biopsy forceps with brief bursts of cautery. There were three near each other. There was one small polyp in the rectum removed with hot biopsy forceps with brief bursts of cautery. Again random cold biopsies had been taken in the cecum and proximal right colon to evaluate for microscopic colitis. The patient tolerated the procedure well. There were no immediate complications. Findings discussed with the family out in the waiting area. I spoke with Dr. Stephens. If thyroid FNA is benign, thyroid tests okay at the moment will plan on repeating the ultrasound of the thyroid in 6 to 12 months. I will see him back in the office in the next week or two.
== END 2019-11-05 14:52 | disposition home or self-care (01) ==
LOC: SDC 08:36
PROVIDERS: ATTEND Surgery
DX: Z12.11 Encounter for screening for malignant neoplasm of colon (principal); D12.2 Benign neoplasm of ascending colon; D12.3 Benign neoplasm of transverse colon; D12.8 Benign neoplasm of rectum; K57.30 Diverticulosis of large intestine without perforation or abscess without bleeding; K64.4 Residual hemorrhoidal skin tags; K64.8 Other hemorrhoids; I10 Essential (primary) hypertension; E78.5 Hyperlipidemia, unspecified; Z79.899 Other long term (current) drug therapy
CPT/HCPCS: 88305; J2704

== ENCOUNTER 2019-12-17 09:55 | Emergency (ER) | payer OTHER, SELFPAY ==
[2019-12-17] MEDS ORDERED: ANTIVERT 25 MG PO ONE (10:00)
[2019-12-17] MEDS ORDERED: ANTIVERT 25 MG ONE (10:10)
[2019-12-17 10:15] LABS: Absolute Neutrophil Ct (ANC) 6.49 (1.4-6.9); BASOPHIL % 0.6 % (0.0-0.4); Basophil (Absolute #) 0.06 (0-0.4); Eosinophil % 4.3 % (0.00-5.0); Hematocrit 47.1 % (42-50); Hemoglobin 15.7 gm/dl (12.5-18.0); Lymphocyte (Absolute #) 1.65 (1.0-4.6); Lymphocytes % 17.7 % (24.0-44.0); Mean Corpuscular Hemoglobin 31.3 pg (26-32); Mean Corpuscular Hgb Concent. 33.3 g/dl (32-36); Mean Platelet Volume 10.8 fl (7.5-11.0); Monocyte (Absolute #) 0.72 (0.0-1.3); Monocytes % 7.7 % (0.0-12.0); Neutrophil % 69.7 % (36.0-66.0); Platelet Count 201 K/mm3 (150-450); Red Blood Count 5.01 M/mm3 (4.1-5.6); Red Cell Distribution Width 13.5 % (11.5-14.0); White Blood Count 9.3 K/mm3 (4.0-10.5)
--- NOTE | 2019-12-17 10:20 | ERPHSYRPT ---
- History of Present Illness Time Seen by Provider: 12/17/19 10:20 Source: patient Exam Limitations: no limitations Physician History: Patient is a 54-year-old male presents to our ED for evaluation of progressive poor balance. Patient states that he has been feeling very weak. Patient has difficulty with recollection. Symptoms have been progressive over the past week. No trauma. No fevers. No neck pain. No chest pain or shortness of breath. No focal or lateralizing symptoms. Patient denies headache. Patient voices no other complaints at this time. Timing/Duration: week(s) Severity: moderate Modifying Factors: Improves With: nothing Associated Symptoms: No nausea, No vomiting, No abdominal pain, No shortness of breath, No cough, No chest pain, No headaches Allergies/Adverse Reactions: No Known Drug Allergies Allergy (Verified 12/17/19 09:58) Home Medications: Losartan Potassium 50 mg PO DAILY 02/26/18 [History] Atorvastatin Calcium [Lipitor] 40 mg PO DAILY 10/25/19 [History] Escitalopram Oxalate [Lexapro] 5 mg PO DAILY 10/25/19 [History] Methadone HCl 10 mg PO BID 10/25/19 [History] Celecoxib [Celebrex] 1 tab PO DAILY 12/17/19 [History] Methimazole [Northyx] 1 tab PO TID 12/17/19 [History] Multivit-Min/Iron/Folic Acid/K [Multi-Day Plus Minerals Tablet] 1 tab PO DAILY 12/17/19 [History] Hx Tetanus, Diphtheria Vaccination/Date Given: (unsure) Hx Influenza Vaccination/Date Given: No Hx Pneumococcal Vaccination/Date Given: No Travel Risk - International Travel Have you traveled outside of the country in past 3 weeks: No (N) Have you or anyone close to you been diagnosed with or: No Do your reside in a community with a known COVID-19 case?: Yes If Yes where:: [facility] - Review of Systems Constitutional: No Symptoms, No Fever, No Chills Eyes: No Symptoms Ears, Nose, & Throat: No Symptoms Respiratory: No Symptoms, No Cough, No Dyspnea Cardiac: No Chest Pain, No Edema, No Syncope Abdominal/Gastrointestinal: No Symptoms, No Abdominal Pain, No Nausea, No Vomiting, No Diarrhea Genitourinary Symptoms: No Symptoms, No Dysuria Musculoskeletal: No Symptoms, No Back Pain, No Neck Pain Skin: No Symptoms, No Rash Neurological: No Symptoms, No Dizziness, No Focal Weakness, No Sensory Changes Psychological: No Symptoms Endocrine: No Symptoms Hematologic/Lymphatic: No Symptoms Immunological/Allergic: No Symptoms All Other Systems: Reviewed and Negative - Past Medical History Pertinent Past Medical History: Yes Neurological History: No Pertinent History ENT History: No Pertinent History Cardiac History: High Cholesterol, Hypertension Respiratory History: No Pertinent History Endocrine Medical History: No Pertinent History Musculoskeletal History: Arthritis, Degenerative Disk Disease GI Medical History: Ulcer History: No Pertinent History Psycho-Social History: No Pertinent History Male Reproductive Disorders: No Pertinent History - Past Surgical History Past Surgical History: Yes Neuro Surgical History: No Pertinent History Cardiac: No Pertinent History Respiratory: No Pertinent History Gastrointestinal: Cholecystectomy Genitourinary: No Pertinent History Musculoskeletal: No Pertinent History Male Surgical History: No Pertinent History - Social History Smoking Status: Current every day smoker How long have you smoked: 40 YEARS Exposure to second hand smoke: Yes Drug Use: none Patient Lives Alone: No - Nursing Vital Signs Nursing Vital Signs: Initial Vital Signs Pulse Rate 78 12/17/19 10:03 Respiratory Rate 18 12/17/19 10:03 Blood Pressure 133/86 12/17/19 10:03 O2 Sat by Pulse Oximetry 98 12/17/19 10:03 Pain Scale Pain Intensity 0 - Physical Exam General Appearance: no apparent distress, alert Eye Exam: PERRL/EOMI, eyes nml inspection Ears, Nose, Throat Exam: normal ENT inspection, TMs normal, pharynx normal, moist mucous membranes Neck Exam: normal inspection, non-tender, supple, full range of motion Respiratory Exam: normal breath sounds, lungs clear, No respiratory distress Cardiovascular Exam: regular rate/rhythm, normal heart sounds, normal peripheral pulses Gastrointestinal/Abdomen Exam: soft, normal bowel sounds, No tenderness, No mass Back Exam: normal inspection, normal range of motion, No CVA tenderness, No vertebral tenderness Extremity Exam: normal inspection, normal range of motion, pelvis stable Neurologic Exam: alert, oriented x 3, cooperative, normal mood/affect, nml cerebellar function, sensation nml, abnormal gait, No nml station & gait (No focal or lateralizing symptoms. No asymmetrical strength or sensory changes. 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 and vasogenic edema.) Ordered Tests: Active Orders 24 hr Category Date Time Status Sanitation Worker Cleaning Equipment STAT Care 12/17/19 10:03 Active EKG-ER Only STAT Care 12/17/19 10:00 Active IV Insertion STAT Care 12/17/19 10:00 Active CHEST 1 VIEW (PORTABLE) Stat Exams 12/17/19 10:03 Completed HEAD WITHOUT CONTRAST [CT] Stat Exams 12/17/19 10:20 Completed CBC W DIFF Stat Lab 12/17/19 10:10 Completed CMP Stat Lab 12/17/19 10:10 Completed ETHYL ALCOHOL Stat Lab 12/17/19 10:10 Completed MAGNESIUM Stat Lab 12/17/19 10:10 Completed TROPONIN Q3H Lab 12/17/19 10:10 Completed TROPONIN Q3H Lab 12/17/19 13:15 Ordered TROPONIN Q3H Lab 12/17/19 16:15 Ordered TROPONIN Q3H Lab 12/17/19 19:15 Ordered TROPONIN Q3H Lab 12/17/19 22:15 Ordered UA W/RFX UR CULTURE Stat Lab 12/17/19 11:55 Completed Medication Summary Discontinued Medications Generic Name Dose Route Start Last Admin Trade Name Freq PRN Reason Stop Dose Admin Meclizine HCl 25 mg 12/17/19 10:00 12/17/19 10:12 Antivert 25 Mg PO 12/17/19 10:01 25 mg STAT ONE Administration Meclizine HCl Confirm 12/17/19 10:10 Antivert 25 Mg Administered 12/17/19 10:11 Dose 25 mg .ROUTE .STK-MED ONE Lab/Rad Data: Laboratory Result Diagrams 12/17/19 10:10 12/17/19 10:10 Laboratory Results 12/17/19 12/17/19 12/17/19 Range/Units 11:55 10:10 10:10 WBC (4.0-10.5) K/mm3 RBC (4.1-5.6) M/mm3 Hgb (12.5-18.0) gm/dl Hct (42-50) % MCV (78-100) fl MCH (26-32) pg MCHC (32-36) g/dl RDW (11.5-14.0) % Plt Count (150-450) K/mm3 MPV (7.5-11.0) fl Gran % (36.0-66.0) % Eos # (Auto) (0-0.5) Absolute Lymphs (auto) (1.0-4.6) Absolute Monos (auto) (0.0-1.3) Lymphocytes % (24.0-44.0) % Monocytes % (0.0-12.0) % Eosinophils % (0.00-5.0) % Basophils % (0.0-0.4) % Absolute Granulocytes (1.4-6.9) Basophils # (0-0.4) Sodium 141 (137-145) mmol/L Potassium 4.0 (3.5-5.1) mmol/L Chloride 105 (98-107) mmol/L Carbon Dioxide 28 (22-30) mmol/L Anion Gap 11.1 (5-15) MEQ/L BUN 14 (9-20) mg/dL Creatinine 0.85 (0.66-1.25) mg/dL Estimated GFR > 60.0 ML/MIN Glucose 97 (74-106) mg/dL Calcium 9.7 (8.4-10.2) mg/dL Magnesium 1.9 (1.6-2.3) mg/dL Total Bilirubin 1.30 (0.2-1.3) mg/dL AST 31 (17-59) U/L ALT 30 (0-50) U/L Alkaline Phosphatase 123 (38-126) U/L Troponin I < 0.012 (0.000-0.034) ng/mL Serum Total Protein 7.6 (6.3-8.2) g/dL Albumin 4.1 (3.5-5.0) g/dL Urine Color YELLOW (YELLOW) Urine Appearance CLEAR (CLEAR) Urine pH 7.0 (5-6) Ur Specific [place] 1.003 (1.005-1.025) Urine Protein NEGATIVE (Negative) Urine Ketones NEGATIVE (NEGATIVE) Urine Blood NEGATIVE (0-5) Ja/ul Urine Nitrite NEGATIVE (NEGATIVE) Urine Bilirubin NEGATIVE (NEGATIVE) Urine Urobilinogen NEGATIVE (0-1) mg/dL Ur Leukocyte Esterase NEGATIVE (NEGATIVE) Urine WBC (Auto) NONE (0-5) /HPF Urine RBC (Auto) NONE (0-2) /HPF U Epithel Cells (Auto) NONE (FEW) /HPF Urine Bacteria (Auto) NONE (NEGATIVE) /HPF Urine Culture Reflexed NO (NO) Urine Glucose NEGATIVE (NEGATIVE) mg/dL Ethyl Alcohol < 10 (0-10) mg/dL 12/17/19 Range/Units 10:10 WBC 9.3 (4.0-10.5) K/mm3 RBC 5.01 (4.1-5.6) M/mm3 Hgb 15.7 (12.5-18.0) gm/dl Hct 47.1 (42-50) % MCV 94.0 (78-100) fl MCH 31.3 (26-32) pg MCHC 33.3 (32-36) g/dl RDW 13.5 (11.5-14.0) % Plt Count 201 (150-450) K/mm3 MPV 10.8 (7.5-11.0) fl Gran % 69.7 H (36.0-66.0) % Eos # (Auto) 0.40 (0-0.5) Absolute Lymphs (auto) 1.65 (1.0-4.6) Absolute Monos (auto) 0.72 (0.0-1.3) Lymphocytes % 17.7 L (24.0-44.0) % Monocytes % 7.7 (0.0-12.0) % Eosinophils % 4.3 (0.00-5.0) % Basophils % 0.6 (0.0-0.4) % Absolute Granulocytes 6.49 (1.4-6.9) Basophils # 0.06 (0-0.4) Sodium (137-145) mmol/L Potassium (3.5-5.1) mmol/L Chloride (98-107) mmol/L Carbon Dioxide (22-30) mmol/L Anion Gap (5-15) MEQ/L BUN (9-20) mg/dL Creatinine (0.66-1.25) mg/dL Estimated GFR ML/MIN Glucose (74-106) mg/dL Calcium (8.4-10.2) mg/dL Magnesium (1.6-2.3) mg/dL Total Bilirubin (0.2-1.3) mg/dL AST (17-59) U/L ALT (0-50) U/L Alkaline Phosphatase (38-126) U/L Troponin I (0.000-0.034) ng/mL Serum Total Protein (6.3-8.2) g/dL Albumin (3.5-5.0) g/dL Urine Color (YELLOW) Urine Appearance (CLEAR) Urine pH (5-6) Ur Specific [place] (1.005-1.025) Urine Protein (Negative) Urine Ketones (NEGATIVE) Urine Blood (0-5) Ja/ul Urine Nitrite (NEGATIVE) Urine Bilirubin (NEGATIVE) Urine Urobilinogen (0-1) mg/dL Ur Leukocyte Esterase (NEGATIVE) Urine WBC (Auto) (0-5) /HPF Urine RBC (Auto) (0-2) /HPF U Epithel Cells (Auto) (FEW) /HPF Urine Bacteria (Auto) (NEGATIVE) /HPF Urine Culture Reflexed (NO) Urine Glucose (NEGATIVE) mg/dL Ethyl Alcohol (0-10) mg/dL - Progress Progress: unchanged, improved Progress Note: 12/17/19 12:14 Patient reassessed. Neuro exam remained stable. No focal or lateralizing symptoms. No sensory changes. He said patient up to urinate in a urinal at bedside. Patient was off balance. No nausea or vomiting. No falls or injuries. We will transfer patient ER [facility] ER to [facility]. Patient aware of plan of care patient agrees with plan of care. Discussed with .: Bhanu (Case discussed with Dr. Pappas neurosurgeon at [facility] who accepts transfer ER to ER.) Will see patient in: other (Transfer to [facility], ER to ER.) Counseled pt/family regarding: lab results, diagnosis, rad results - Departure Departure Disposition: Home, Transfer Clinical Impression: Dizziness, Unsteady gait, Brain mass Condition: Stable Critical Care Time: No Referrals: NIMA REESE MD [Primary Care Provider] - Additional Instructions: Discharge/Care Plan JAS JEFF was seen on 12/17/19 in the Emergency Room. The patient was counseled regarding Diagnosis,Lab results, Imaging studies, need for follow up and when to return to the Emergency Room. Prescriptions given: Discharge Note I have spoken with the patient and/or caregivers. I have explained the patient' s condition, diagnosis and treatment plan based on the information available to me at this time. I have answered the patient's and/or caregiver's questions and addressed any concerns. The patient and/or caregivers have as good understanding of the patient's diagnosis, condition and treatment plan as can be expected at this point. The vital signs have been stable. The patient's condition is stable and appropriate for discharge from the emergency department. The patient will pursue further outpatient evaluation with the primary care physician or other designated or consulting physician as outlined in the discharge instructions. The patient and/or caregivers are agreeable to this plan of care and follow-up instructions have been explained in detail. The patient and/or caregivers have received these instruction. The patient/and or caregivers are aware that any significant change in condition or worsening of symptoms should prompt an immediate return to this or the closest emergency department or call 911.
[2019-12-17 10:28] LABS: ALBUMIN 4.1 g/dL (3.5-5.0); ALKALINE PHOSPHATASE 123 U/L (38-126); ANION GAP 11.1 MEQ/L (5-15); BLOOD UREA NITROGEN 14 mg/dL (9-20); CHLORIDE 105 mmol/L (98-107); Calcium 9.7 mg/dL (8.4-10.2); Carbon Dioxide 28 mmol/L (22-30); Creatinine 1 0.85 mg/dL (0.66-1.25); Glucose 97 mg/dL (74-106); MAGNESIUM 1.9 mg/dL (1.6-2.3); SGOT/AST 31 U/L (17-59); SGPT/ALT 30 U/L (0-50); SODIUM 141 mmol/L (137-145); Total Protein 7.6 g/dL (6.3-8.2)
[2019-12-17 10:29] LABS: ETHYL ALCOHOL < 10 mg/dL (0-10)
--- NOTE | 2019-12-17 10:43 | XRAY ---
Indication: Dizziness. Multiple contiguous axial images obtained through the head without contrast. Comparison: None Left temporal lobe demonstrates large noncalcified mass measuring at least 6.3 x 5.4 x 4.1 cm with surrounding vasogenic edema and mass effect. There is a 1.4 cm midline shifting. No acute hemorrhage. Fourth ventricle is midline. Bony calvarium intact. Visualized paranasal sinuses and mastoid air cells are clear. 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 No acute hemorrhage. MRI brain with contrast may yield further information. Comment: Telephone report given to ordering ER clinician, Dr. Otero at 1032 hrs. on December 17, 2019.
--- NOTE | 2019-12-17 10:46 | XRAY ---
Indication: Dizziness. Comparison: None Portable apical lordotic chest hyperinflated and clear. Heart is not enlarged. Bony thorax intact. Impression: Nonacute hyperinflated chest.
[2019-12-17 12:03] LABS: Appearance CLEAR (CLEAR); Bilirubin NEGATIVE (NEGATIVE); Blood NEGATIVE Ery/ul (0-5); Glucose NEGATIVE (NEGATIVE); Ketones NEGATIVE (NEGATIVE); Leukocyte Esterase NEGATIVE (NEGATIVE); Nitrite NEGATIVE (NEGATIVE); Protein,Urine Dip NEGATIVE (Negative); Specific Gravity 1.003 (1.005-1.025); Urobilinogen NEGATIVE mg/dL (0-1)
[2019-12-17 13:46] VITALS: BP 144/86; PULSE 74; O2SAT 98
== END 2019-12-17 15:48 | disposition short-term general hospital (02) ==
LOC: ED 09:55
DX: R42 Dizziness and giddiness (principal); R26.9 Unspecified abnormalities of gait and mobility; G93.9 Disorder of brain, unspecified
CPT/HCPCS: 36000; 36415; 70450; 71045; 80053; 80307; 81001; 83735; 84484; 85025; 93005; 93041; 99285; A9270-GY; G0480

== ENCOUNTER 2021-04-22 05:54 | Day surgery (SDC) | payer OTHER ==
[2021-04-22] MEDS ORDERED: Lactated Ringers 1,000 ML IV SCH (06:30)
[2021-04-22] MEDS ORDERED: DIPRIVAN 200 MG/20 ML IV ONE ×2 (06:52→07:50)
[2021-04-22] MEDS ORDERED: Xylocaine-Mpf 2% 5 Ml Vial ONE (07:50)
[2021-04-22] MEDS ORDERED: Versed 2 MG/2 ML Injection ONE (08:09)
[2021-04-22 08:15] VITALS: O2SAT 98
[2021-04-22 08:26] VITALS: PULSE 74
[2021-04-22 08:31] VITALS: BP 112/67
--- NOTE | 2021-04-22 11:11 | OP ---
SURGERY DATE/TIME: 04/22/2021 0700 PREOPERATIVE DIAGNOSIS: Screening colonoscopy. POSTOPERATIVE DIAGNOSIS: Transverse colon polyp. PROCEDURE: Colonoscopy. SURGEON: Donovan Hernandez M.D. ANESTHESIA: MAC by Rosales Barrera CRNA. ESTIMATED BLOOD LOSS: Minimal. SPECIMENS: Hot forceps polypectomy from transverse colon. DESCRIPTION OF PROCEDURE: After informed written consent was obtained, the patient was taken to the endoscopy suite. He was placed in left lateral decubitus position. Anesthesia was titrated to desired level of consciousness. Digital rectal exam showed normal sphincter tone and no internal lesions. The scope was inserted into the rectum and sequentially the entire colonic mucosa was traversed. The level of cecum was reached and verified with direct visualization of the ileocecal valve. Upon withdrawal there was a small sessile polyp in the transverse colon this was grasped with forceps cauterized and removed in its entirety with no bleeding following the removal. The remainder of the exam was unremarkable. The prep was noted to be fair to poor as there was semisolid and liquid stool present throughout much of the length of the colon. Prior to withdrawal retroflexion was performed and showed no internal lesions. The scope was removed and the patient was transferred to the recovery room in good condition.
== END 2021-04-22 08:36 | disposition home or self-care (01) ==
LOC: SDC 05:54
PROVIDERS: ATTEND Family Medicine
DX: Z12.11 Encounter for screening for malignant neoplasm of colon (principal); D12.3 Benign neoplasm of transverse colon; Z79.899 Other long term (current) drug therapy
CPT/HCPCS: 88305; J2250; J2704